=== PATIENT | female | born 1950 | race Caucasian/White ===

== ENCOUNTER 2016-10-02 13:02 | Emergency (ER) | payer MEDICARE, OTHER ==
[~2016-10-02 13:02] MED LIST: BUMETANIDE2 MG PO; CILOSTAZOL50 MG PO; ELIQUIS5 MG PO; K-DUR TAB 20 M20 MEQ PO; LOPRESSOR 25 MG25 MG PO; LORAZEPAM0.5 MG PO; MULTAQ 400 MG400 MG PO; NATEGLINIDE120 MG PO; NEURONTIN 300300 MG PO; OMEPRAZOLE20 M1 PO; PROAIR HFA8.5 GM INH; SERTRALINE HCL50 MG PO; SINGULAIR10 MG PO; SPIRIVA RESPIMAT4 GM INH; SPIRIVA18 MCG INH; SYMBICORT 160-1 INHA INH; SYMBICORT 16010.2 GM INH; SYNTHROID 25 M25 MCG PO; TRAZODONE HCL50 MG PO; VENTOLIN/PROVE0.5 ML INH; VITAMIN D31000 UNI1 PO
[2016-10-02 15:33] LABS: HEMOGLOBIN 11.2 gm/dl (12.3-15.3); RED BLOOD COUNT 4.12 M/UL (4.00-5.10); WHITE BLOOD COUNT 7.3 K/UL (4.5-11.0)
[2017-01-19] MEDS ORDERED: DULERA 200 MCG8.8 GM INH ×2 (13:36→13:37)
[2017-01-19] MEDS ORDERED: LASIX20 MG PO (13:37)
[2017-01-19] MEDS ORDERED: TOVIAZ8 MG PO (13:37)
[2017-01-19] MEDS ORDERED: NITROSTAT0.4 MG SL (13:38)
[2017-01-22] MEDS ORDERED: MEDROL DOSEPAK 24 MG PO (20:36)
[2017-03-07] MEDS ORDERED: ZANTAC 150 MG150 MG PO (18:05)
[2017-03-07] MEDS ORDERED: LEVOCETIRIZINE D5 MG PO (18:05)
[2017-03-07] MEDS ORDERED: BREO ELLIPTA INH (18:07)
[2017-03-14] MEDS ORDERED: PREDNISONE10 MG PO (19:00)
[2017-03-14] MEDS ORDERED: AUGMENTIN TAB875 MG PO (19:01)
== END 2016-10-02 19:00 | disposition home or self-care (01) ==
LOC: ER1 13:02
PROVIDERS: Emergency Medicine
DX: J18.9 Pneumonia, unspecified organism (principal); J40 Bronchitis, not specified as acute or chronic; E11.9 Type 2 diabetes mellitus without complications; J44.9 Chronic obstructive pulmonary disease, unspecified; Z88.1 Allergy status to other antibiotic agents; Z79.01 Long term (current) use of anticoagulants; Z79.899 Other long term (current) drug therapy
CPT/HCPCS: 36415; 71010; 80048; 83880; 84484; 85025; 93005; 94664; 96374; 96375; 99285; J1100; J1940; J3480

== ENCOUNTER 2016-10-05 13:52 | Emergency (ER) | payer MEDICARE, OTHER ==
[2017-01-19] MEDS ORDERED: DULERA 200 MCG8.8 GM INH ×2 (13:36→13:37)
[2017-01-19] MEDS ORDERED: LASIX20 MG PO (13:37)
[2017-01-19] MEDS ORDERED: TOVIAZ8 MG PO (13:37)
[2017-01-19] MEDS ORDERED: NITROSTAT0.4 MG SL (13:38)
[2017-01-22] MEDS ORDERED: MEDROL DOSEPAK 24 MG PO (20:36)
[2017-03-07] MEDS ORDERED: LEVOCETIRIZINE D5 MG PO (18:05)
[2017-03-07] MEDS ORDERED: ZANTAC 150 MG150 MG PO (18:05)
[2017-03-07] MEDS ORDERED: BREO ELLIPTA INH (18:07)
[2017-03-14] MEDS ORDERED: PREDNISONE10 MG PO (19:00)
[2017-03-14] MEDS ORDERED: AUGMENTIN TAB875 MG PO (19:01)
== END 2016-10-05 15:25 | disposition home or self-care (01) ==
LOC: ER1 13:52
DX: L27.0 Generalized skin eruption due to drugs and medicaments taken internally (principal); T36.4X5A Adverse effect of tetracyclines, initial encounter; I11.0 Hypertensive heart disease with heart failure; I50.9 Heart failure, unspecified; J44.9 Chronic obstructive pulmonary disease, unspecified; I25.10 Atherosclerotic heart disease of native coronary artery without angina pectoris; E11.9 Type 2 diabetes mellitus without complications; Z87.891 Personal history of nicotine dependence; Z88.1 Allergy status to other antibiotic agents
CPT/HCPCS: 82962; 96374; 96375; 99282; J1200; J2930

== ENCOUNTER 2016-11-22 12:30 | Emergency (ER) | payer MEDICARE, OTHER ==
[2016-11-22 14:25] LABS: HEMOGLOBIN 11.5 gm/dl (12.3-15.3); RED BLOOD COUNT 4.16 M/UL (4.00-5.10); WHITE BLOOD COUNT 6.4 K/UL (4.5-11.0)
[2017-01-19] MEDS ORDERED: DULERA 200 MCG8.8 GM INH ×2 (13:36→13:37)
[2017-01-19] MEDS ORDERED: TOVIAZ8 MG PO (13:37)
[2017-01-19] MEDS ORDERED: LASIX20 MG PO (13:37)
[2017-01-19] MEDS ORDERED: NITROSTAT0.4 MG SL (13:38)
[2017-01-22] MEDS ORDERED: MEDROL DOSEPAK 24 MG PO (20:36)
[2017-03-07] MEDS ORDERED: ZANTAC 150 MG150 MG PO (18:05)
[2017-03-07] MEDS ORDERED: LEVOCETIRIZINE D5 MG PO (18:05)
[2017-03-07] MEDS ORDERED: BREO ELLIPTA INH (18:07)
[2017-03-14] MEDS ORDERED: PREDNISONE10 MG PO (19:00)
[2017-03-14] MEDS ORDERED: AUGMENTIN TAB875 MG PO (19:01)
== END 2016-11-22 15:39 | disposition home or self-care (01) ==
LOC: ER1 12:30
PROVIDERS: Physician Assistant
DX: J44.1 Chronic obstructive pulmonary disease with (acute) exacerbation (principal); I48.91 Unspecified atrial fibrillation; I13.0 Hypertensive heart and chronic kidney disease with heart failure and stage 1 through stage 4 chronic kidney disease, or unspecified chronic kidney disease; I50.9 Heart failure, unspecified; N18.9 Chronic kidney disease, unspecified; E11.22 Type 2 diabetes mellitus with diabetic chronic kidney disease; E07.9 Disorder of thyroid, unspecified; Z88.1 Allergy status to other antibiotic agents; Z79.899 Other long term (current) drug therapy
CPT/HCPCS: 36415; 36600; 71010; 80053; 82550; 82553; 82803; 83874; 83880; 84484; 85025; 87040; 93005; 94640; 94664; 96374; 99284; J2930

== ENCOUNTER → 2020-06-11 | Outpatient (CLI) | payer OTHER ==
[~2020-06-11] MED LIST changes: +ALLEGRA-D 24 H1 EACH PO; +AUGMENTIN TAB875 MG PO; +AZITHROMYCIN500 MG PO; +BENZONATATE200 MG PO; +BREO ELLIPTA INH; +CEFUROXIME250 MG PO; +CEFUROXIME500 MG PO; +CLARITIN10 MG PO; +DALIRESP500 MCG PO; +DILTIAZEM 12HR120 MG PO; +DULERA 200 MCG8.8 GM INH; +GLUCOSAMINE1000 MG PO; +KEFLEX CAP 500500 MG PO; +KLOR-CON M2020 MEQ PO; +LASIX TAB 20 MG20 MG PO; +LASIX20 MG PO; +LEVOCETIRIZINE D5 MG PO; +MEDROL DOSEPAK 24 MG PO; +MEDROL4 MG PO; +MUCINEX600 MG PO; +NITROSTAT0.4 MG SL; +PEPCID40 MG PO; +PLETAL 100 MG100 MG PO; +PREDNISONE10 MG PO; +PREDNISONE20 MG PO; +SULFAMETHOXAZO1 EACH PO; +TESSALON PERLE100 MG PO; +TOVIAZ8 MG PO; +VENTOLIN HFA 66.7 GM INH; -VITAMIN D31000 UNI1 PO; +VITAMIN D325 MC6 PO; +XYZAL5 MG PO; +ZANTAC 150 MG150 MG PO; +ZITHROMAX250 MG PO; +ZOLOFT50 MG PO; +ZYVOX 600 MG T600 MG PO
== END ==
LOC: KOH-I 15:28
DX: R22.1 Localized swelling, mass and lump, neck (principal)
CPT/HCPCS: 70490

== ENCOUNTER → 2020-10-03 | Outpatient (CLI) | payer OTHER | LOC: US 10:00 | DX: R10.11 Right upper quadrant pain (principal) | CPT/HCPCS: 76705 ==

== ENCOUNTER → 2020-10-18 | Outpatient (CLI) | payer OTHER | LOC: HEART 5 09:05 | DX: I20.9 Angina pectoris, unspecified (principal) | CPT/HCPCS: 78452; A9502; J2785 ==

== ENCOUNTER → 2020-11-14 | Outpatient (CLI) | payer OTHER ==
[2020-11-14 16:48] LABS: HEMOGLOBIN 9.2 gm/dl (12.3-15.3); RED BLOOD COUNT 3.4 M/UL (4.00-5.10); WHITE BLOOD COUNT 8.1 K/UL (4.5-11.0)
[2020-11-14 17:17] LABS: BUN/CREATININE RATIO 10 (0-10)
== END ==
LOC: LAB 15:57
PROVIDERS: Internal Medicine Cardiovascular Disease
DX: I20.9 Angina pectoris, unspecified (principal); R94.39 Abnormal result of other cardiovascular function study; J43.9 Emphysema, unspecified
CPT/HCPCS: 36415; 71046; 80048; 85025

== ENCOUNTER 2020-11-16 08:02 | Outpatient (CLI) | payer OTHER ==
[~2020-11-16] VITALS: Ht 160 cm; Wt 68.0 kg
[~2020-11-16 08:02] MED LIST changes: -AZITHROMYCIN500 MG PO; -CLARITIN10 MG PO; -DILTIAZEM 12HR120 MG PO
[2020-11-16] MEDS ORDERED: AZITHROMYCIN500 MG PO (10:02)
[2020-11-16] MEDS ORDERED: CLARITIN10 MG PO (10:03)
[2020-11-16] MEDS ORDERED: DILTIAZEM 12HR120 MG PO (10:05)
[2020-11-16] MEDS ORDERED: OMEPRAZOLE20 M1 PO (10:10)
== END 2020-11-16 17:39 | disposition home or self-care (01) ==
LOC: CATH 08:02 → M/S 15:14 → CATH 17:39
DX: I20.8 Other forms of angina pectoris (principal); I48.0 Paroxysmal atrial fibrillation; I34.0 Nonrheumatic mitral (valve) insufficiency; I65.29 Occlusion and stenosis of unspecified carotid artery; E11.51 Type 2 diabetes mellitus with diabetic peripheral angiopathy without gangrene; I70.219 Atherosclerosis of native arteries of extremities with intermittent claudication, unspecified extremity; J44.9 Chronic obstructive pulmonary disease, unspecified; J96.12 Chronic respiratory failure with hypercapnia; F41.9 Anxiety disorder, unspecified; E03.9 Hypothyroidism, unspecified; G47.33 Obstructive sleep apnea (adult) (pediatric); M06.9 Rheumatoid arthritis, unspecified; I27.20 Pulmonary hypertension, unspecified; Z87.891 Personal history of nicotine dependence; Z88.1 Allergy status to other antibiotic agents; Z91.018 Allergy to other foods; Z88.8 Allergy status to other drugs, medicaments and biological substances; Z79.84 Long term (current) use of oral hypoglycemic drugs; Z79.2 Long term (current) use of antibiotics; Z79.01 Long term (current) use of anticoagulants; Z79.899 Other long term (current) drug therapy
CPT/HCPCS: 82962; 99152; 99153; C1769; C1894; J1644; J2250; J3010; J7030; Q9965

== ENCOUNTER 2021-04-27 12:37 | Inpatient (IN) | payer OTHER ==
[~2021-04-27] VITALS: Ht 160 cm; Wt 68.0 kg
[~2021-04-27 12:37] MED LIST changes: +ATIVAN 1MG TABLE1 MG PO; +AZITHROMYCIN500 MG PO; +BREO ELLIPTA 21 EACH INH; -BREO ELLIPTA INH; +CLARITIN10 MG PO; +DILTIAZEM 24HR120 M1 PO; -LORAZEPAM0.5 MG PO; -SYNTHROID 25 M25 MCG PO; +SYNTHROID25 MCG PO
[2021-04-27 13:51] LABS: HEMOGLOBIN 7.4 gm/dl (12.3-15.3); RED BLOOD COUNT 3.02 M/UL (4.00-5.10); WHITE BLOOD COUNT 5.4 K/UL (4.5-11.0)
[2021-04-27 14:16] LABS: BUN/CREATININE RATIO 10 (0-10)
[2021-04-27] MEDS ORDERED: VITAMIN C125 MG PO (18:30)
[2021-04-27] MEDS ORDERED: ZINC50 M1 PO (18:30)
[2021-04-27] MEDS ORDERED: GLUCOSAMINE HC500 MG PO (18:31)
[2021-04-28 04:45] LABS: RED BLOOD COUNT 2.72 M/UL (4.00-5.10); WHITE BLOOD COUNT 4.6 K/UL (4.5-11.0)
[2021-04-28 04:48] LABS: HEMOGLOBIN 6.7 gm/dl (12.3-15.3)
[2021-04-28 05:17] LABS: BUN/CREATININE RATIO 14 (0-10)
[2021-04-29 10:22] LABS: HEMOGLOBIN 9.5 gm/dl (12.3-15.3); RED BLOOD COUNT 3.72 M/UL (4.00-5.10); WHITE BLOOD COUNT 12.8 K/UL (4.5-11.0)
--- NOTE | 2021-04-29 18:47 | NUR ---
DR MOLINA AWARE OF PT'S LACTIC ACID [id number]
[2021-04-30 07:38] LABS: HEMOGLOBIN 8.2 gm/dl (12.3-15.3)
[2021-04-30 07:41] LABS: RED BLOOD COUNT 3.28 M/UL (4.00-5.10); WHITE BLOOD COUNT 9.1 K/UL (4.5-11.0)
[2021-04-30] MEDS ORDERED: FERROUS GLUCON324 M1 PO (13:40)
[2021-04-30] MEDS ORDERED: DOCUSATE SODIU100 MG PO (13:40)
[2021-04-30] MEDS ORDERED: MEDROL DOSEPAK 24 MG PO (15:39)
== END 2021-04-30 18:11 | disposition home or self-care (01) | DRG 189 ==
LOC: ER1 12:37 → MED SURG 4 17:41 → CDU 17:41 → MED SURG 4 18:52
PROVIDERS: Physician Assistant; ADMIT Internal Medicine
PROC: 30233N1 Transfusion of Nonautologous Red Blood Cells into Peripheral Vein, Percutaneous Approach (ICD-10-PCS; principal; 2021-04-27)
PROC: B24BZZZ Ultrasonography of Heart with Aorta (ICD-10-PCS; 2021-04-29)
DX: J96.21 Acute and chronic respiratory failure with hypoxia (principal); J98.11 Atelectasis; I13.0 Hypertensive heart and chronic kidney disease with heart failure and stage 1 through stage 4 chronic kidney disease, or unspecified chronic kidney disease; I50.32 Chronic diastolic (congestive) heart failure; J44.0 Chronic obstructive pulmonary disease with (acute) lower respiratory infection; J44.1 Chronic obstructive pulmonary disease with (acute) exacerbation; J20.9 Acute bronchitis, unspecified; J96.22 Acute and chronic respiratory failure with hypercapnia; Z20.822 Contact with and (suspected) exposure to COVID-19; D50.9 Iron deficiency anemia, unspecified; D63.1 Anemia in chronic kidney disease; N18.30 Chronic kidney disease, stage 3 unspecified; E11.22 Type 2 diabetes mellitus with diabetic chronic kidney disease; I48.0 Paroxysmal atrial fibrillation; E78.5 Hyperlipidemia, unspecified; I27.20 Pulmonary hypertension, unspecified; G47.33 Obstructive sleep apnea (adult) (pediatric); Z96.611 Presence of right artificial shoulder joint; E87.6 Hypokalemia; E03.9 Hypothyroidism, unspecified; K21.9 Gastro-esophageal reflux disease without esophagitis; G89.29 Other chronic pain; I08.1 Rheumatic disorders of both mitral and tricuspid valves; M54.9 Dorsalgia, unspecified; Z96.1 Presence of intraocular lens; F41.9 Anxiety disorder, unspecified; Z87.891 Personal history of nicotine dependence; Z99.81 Dependence on supplemental oxygen; Z82.49 Family history of ischemic heart disease and other diseases of the circulatory system; Z80.3 Family history of malignant neoplasm of breast; Z88.1 Allergy status to other antibiotic agents; Z90.710 Acquired absence of both cervix and uterus; Z98.890 Other specified postprocedural states; Z98.42 Cataract extraction status, left eye; Z98.41 Cataract extraction status, right eye
CPT/HCPCS: ECHO; 36415; 36600; 71045; 71046; 80048; 80053; 82272; 82550; 82553; 82728; 82803; 82962; 83540; 83550; 83605; 83735; 83874; 83880; 84100; 84484; 85025; 86140; 86850; 86900; 86901; 86920; 87040; 93005; 93306; 93970; 94640; 94660; 94664; 94760; 96374; 99285; J0456; J0696; J2405; J2920; J2930; J7030; J7050; P9016; U0002

== ENCOUNTER 2021-06-12 10:35 | Inpatient (IN) | payer MEDICARE, OTHER ==
[~2021-06-12] VITALS: Ht 160 cm; Wt 68.0 kg
[~2021-06-12 10:35] MED LIST changes: +DOCUSATE SODIU100 MG PO; +FERROUS GLUCON324 M1 PO; +GLUCOSAMINE HC500 MG PO; +VITAMIN C125 MG PO; +ZINC50 M1 PO
[2021-06-12 11:31] LABS: HEMOGLOBIN 10.6 gm/dl (12.3-15.3); RED BLOOD COUNT 3.93 M/UL (4.00-5.10); WHITE BLOOD COUNT 7.4 K/UL (4.5-11.0)
[2021-06-12] MEDS ORDERED: AZITHROMYCIN500 MG PO (13:54)
[2021-06-12] MEDS ORDERED: FUROSEMIDE40 MG PO (13:54)
[2021-06-13 05:12] LABS: HEMOGLOBIN 9.7 gm/dl (12.3-15.3); RED BLOOD COUNT 3.66 M/UL (4.00-5.10)
[2021-06-13 05:16] LABS: WHITE BLOOD COUNT 2.2 K/UL (4.5-11.0)
[2021-06-14 04:09] LABS: RED BLOOD COUNT 3.43 M/UL (4.00-5.10); WHITE BLOOD COUNT 4.8 K/UL (4.5-11.0)
[2021-06-15 06:46] LABS: HEMOGLOBIN 9.1 gm/dl (12.3-15.3); RED BLOOD COUNT 3.44 M/UL (4.00-5.10); WHITE BLOOD COUNT 5.2 K/UL (4.5-11.0)
[2021-06-16 06:51] LABS: HEMOGLOBIN 9.4 gm/dl (12.3-15.3); RED BLOOD COUNT 3.63 M/UL (4.00-5.10); WHITE BLOOD COUNT 5.9 K/UL (4.5-11.0)
[2021-06-17 06:25] LABS: HEMOGLOBIN 9.1 gm/dl (12.3-15.3); RED BLOOD COUNT 3.54 M/UL (4.00-5.10); WHITE BLOOD COUNT 7.2 K/UL (4.5-11.0)
[2021-06-18 06:26] LABS: HEMOGLOBIN 9.5 gm/dl (12.3-15.3); RED BLOOD COUNT 3.54 M/UL (4.00-5.10)
[2021-06-19 07:46] LABS: HEMOGLOBIN 9.1 gm/dl (12.3-15.3); RED BLOOD COUNT 3.55 M/UL (4.00-5.10); WHITE BLOOD COUNT 8.8 K/UL (4.5-11.0)
[2021-06-19] MEDS ORDERED: MEDROL4 MG PO (12:37)
--- NOTE | 2021-06-19 15:00 | NUR ---
REPORT CALLED TO CORY AND GAVE REPORT TO MEME.
== END 2021-06-19 15:17 | disposition home health service (06) | DRG 177 ==
LOC: ER1 10:35 → M/S 12:55 → CDU 12:55 → 3 EAST 12:55 → M/S 06-14 20:09
PROVIDERS: Emergency Medicine; Physician Assistant Medical; ADMIT Internal Medicine
PROC: 8E0ZXY6 Isolation (ICD-10-PCS; principal; 2021-06-12)
PROC: XW033E5 Introduction of Remdesivir Anti-infective into Peripheral Vein, Percutaneous Approach, New Technology Group 5 (ICD-10-PCS; 2021-06-12)
PROC: 3E0333Z Introduction of Anti-inflammatory into Peripheral Vein, Percutaneous Approach (ICD-10-PCS; 2021-06-12)
PROC: XW033H5 Introduction of Tocilizumab into Peripheral Vein, Percutaneous Approach, New Technology Group 5 (ICD-10-PCS; 2021-06-12)
PROC: 5A0955A Assistance with Respiratory Ventilation, Greater than 96 Consecutive Hours, High Flow/Velocity Cannula (ICD-10-PCS; 2021-06-13)
DX: U07.1 COVID-19 (principal); J12.82 Pneumonia due to coronavirus disease 2019; J96.21 Acute and chronic respiratory failure with hypoxia; J44.0 Chronic obstructive pulmonary disease with (acute) lower respiratory infection; I50.32 Chronic diastolic (congestive) heart failure; I13.0 Hypertensive heart and chronic kidney disease with heart failure and stage 1 through stage 4 chronic kidney disease, or unspecified chronic kidney disease; N17.9 Acute kidney failure, unspecified; N30.00 Acute cystitis without hematuria; J44.1 Chronic obstructive pulmonary disease with (acute) exacerbation; Z66 Do not resuscitate; D63.1 Anemia in chronic kidney disease; I48.0 Paroxysmal atrial fibrillation; N18.30 Chronic kidney disease, stage 3 unspecified; E86.0 Dehydration; E11.22 Type 2 diabetes mellitus with diabetic chronic kidney disease; E78.5 Hyperlipidemia, unspecified; F41.9 Anxiety disorder, unspecified; M54.9 Dorsalgia, unspecified; G89.29 Other chronic pain; K21.9 Gastro-esophageal reflux disease without esophagitis; E87.6 Hypokalemia; Z96.611 Presence of right artificial shoulder joint; M47.812 Spondylosis without myelopathy or radiculopathy, cervical region; B96.20 Unspecified Escherichia coli [E. coli] as the cause of diseases classified elsewhere; E03.9 Hypothyroidism, unspecified; Z85.828 Personal history of other malignant neoplasm of skin; Z90.12 Acquired absence of left breast and nipple; Z99.81 Dependence on supplemental oxygen; Z98.890 Other specified postprocedural states; Z85.3 Personal history of malignant neoplasm of breast; Z98.41 Cataract extraction status, right eye; Z98.42 Cataract extraction status, left eye; Z90.710 Acquired absence of both cervix and uterus; Z95.1 Presence of aortocoronary bypass graft; Z88.8 Allergy status to other drugs, medicaments and biological substances; Z87.891 Personal history of nicotine dependence; Z82.49 Family history of ischemic heart disease and other diseases of the circulatory system; Z80.3 Family history of malignant neoplasm of breast; Z79.01 Long term (current) use of anticoagulants; Z23 Encounter for immunization; Z79.899 Other long term (current) drug therapy; Z79.4 Long term (current) use of insulin
CPT/HCPCS: 0240U; 36415; 36600; 70450; 71045; 72125; 80048; 80053; 81001; 82550; 82553; 82803; 82962; 83605; 83735; 83874; 83880; 84484; 85025; 85027; 86140; 87040; 87077; 87086; 87186; 93005; 94640; 94660; 94664; 94667; 94760; 99285; J0696; J1100; J7030

== ENCOUNTER 2021-09-05 11:29 | Emergency (ER) | payer MEDICARE, OTHER ==
[~2021-09-05 11:29] MED LIST changes: +FUROSEMIDE40 MG PO
[2021-09-05 12:22] LABS: RED BLOOD COUNT 2.69 M/UL (4.00-5.10); WHITE BLOOD COUNT 5.9 K/UL (4.5-11.0)
== END 2021-09-05 17:55 | disposition home or self-care (01) ==
LOC: ER1 11:29
PROVIDERS: Physician Assistant
DX: D64.9 Anemia, unspecified (principal)
CPT/HCPCS: 36430; 80053; 85025; 86850; 86900; 86901; 86920; 99284; P9016

== ENCOUNTER 2022-02-28 14:52 | Emergency (ER) | payer MEDICARE, OTHER ==
[2022-02-28 15:20] LABS: RED BLOOD COUNT 3.22 M/UL (4.00-5.10)
== END 2022-02-28 19:13 | disposition home or self-care (01) ==
LOC: ER1 14:52
PROVIDERS: Student in an Organized Health Care Education/Training Program
DX: D64.9 Anemia, unspecified (principal); Z79.01 Long term (current) use of anticoagulants; Z88.8 Allergy status to other drugs, medicaments and biological substances
CPT/HCPCS: 80053; 85025; 86850; 86900; 86901; 99284